=== PATIENT | male | born 1935 | race Caucasian/White ===

== ENCOUNTER 2016-11-10 13:35 | Observation (INO) | payer MEDICARE, MEDICAID ==
[2014-12-23 06:48] VITALS: BMI 24.2
[~2016-11-10 13:35] MED LIST: Sodium Chloride 0.9% 1,000 ML IV ONE
[2016-11-10] MEDS ORDERED: Sodium Chloride 0.9% 1,000 ML IV ONE (14:03)
[2016-11-10 22:45] LABS: ARTERIAL BLOOD GAS PH 7.36 (7.35-7.45)
[2016-11-10 22:48] LABS: ARTERIAL BLOOD GAS O2 CONTENT 15 ML/dL (15-23)
[2016-11-10 22:49] LABS: ARTERIAL BLOOD GAS O2 CAPACITY 23.2 mL/dL (16-24); CARBOXYHEMOGLOBIN 1.1 % (0.5-1.5); HHB 2.4 % (0-5); METHEMOGLOBIN 0.5 % (0.0-3.0)
[2016-11-10] MEDS: Pantoprazole 40 mg EC Tab PO SCH (23:05)
--- NOTE | 2016-11-10 23:13 | CT ---
PROCEDURE: CT HEAD WITHOUT CONTRAST. HISTORY: COMPARISON: None available. TECHNIQUE: Axial computed tomography images were obtained through the head/brain without intravenous contrast. Radiation dose: Total exam DLP = 677.45 mGy-cm. This CT exam was performed using one or more of the following dose reduction techniques: Automated exposure control, adjustment of the mA and/or kV according to patient size, and/or use of iterative reconstruction technique. FINDINGS: HEMORRHAGE: No acute parenchymal, subarachnoid or extra-axial hemorrhage. . BRAIN: Mild chronic periventricular white matter ischemic changes. Moderate generalized volume loss. Vascular calcifications of the carotid siphons and vertebral arteries. VENTRICLES: Enlargement of the ventricles and sulci due to volume loss however no evidence of obstructive type hydrocephalus. CALVARIUM: Calvarium is intact. PARANASAL SINUSES: Frontal sinuses are underpneumatized/hypoplastic. Remaining visualized paranasal sinuses well-developed and currently well-aerated. MASTOID AIR CELLS: Unremarkable as visualized. No inflammatory changes. OTHER FINDINGS: Apparent bilateral cataract surgery. IMPRESSION: No acute intracranial hemorrhage. Mild chronic white matter ischemic changes. Moderate volume loss.
--- NOTE | 2016-11-10 23:20 | CT ---
PROCEDURE: CT abdomen pelvis 11/10/2016 HISTORY: COMPARISON: None. TECHNIQUE: Contiguous axial images of the abdomen and pelvis. Oral contrast was administered. No IV contrast given. Coronal and Sagittal reformats generated. Radiation dose: Total exam DLP = 582.21 mGy-cm. This CT exam was performed using one or more of the following dose reduction techniques: Automated exposure control, adjustment of the mA and/or kV according to patient size, and/or use of iterative reconstruction technique. FINDINGS: LOWER THORAX: Current study demonstrate mild atelectasis both lung bases. No effusion or basilar pneumothorax. . . Heart size is upper limits of normal/borderline enlarged. Coronary artery calcifications. Also appears a coronary artery stent however correlation with cardiac history suggested. Small hiatal hernia. LIVER: Liver exhibits normal size measuring approximately 17.4 cm in CC dimension. . No obvious hepatic mass or collection. GALLBLADDER AND BILE DUCTS: Gallbladder is incompletely distended however no evidence of intraluminal gallbladder calculi. PANCREAS: Visualized portions of the pancreas unremarkable. SPLEEN: Spleen exhibits normal size and attenuation pattern without mass collection or calcification. ADRENALS: There are no adrenal lesions. KIDNEYS AND URETERS: Kidneys exhibit symmetric size. No evidence of nephrolithiasis or hydronephrosis. Small approximately 12 mm rounded cyst upper pole right kidney. Questionable artifact versus tiny cyst upper pole left kidney. BLADDER: The urinary bladder is physiologically distended. No evidence of intraluminal urinary bladder calculi. There is slight extension of the right anterolateral border of the urinary bladder into the proximal margins/mouth of right inguinal hernia which also contains fat. REPRODUCTIVE: Prostate gland measures approximately 4 cm in transverse dimension. Prostatic calcifications are present. APPENDIX: Normal appendix best seen on coronal image number [id number]. No periappendiceal inflammatory changes. BOWEL: Evaluation of the bowel is limited due to the lack of oral contrast material. Stomach is incompletely distended which presumably accounts thick-walled appearance. Gastritis not excluded. Visualized loops of small bowel exhibit normal contour and caliber. No evidence acute mechanical small bowel obstruction. Stool and air seen throughout the colon. No evidence of definitive mural wall thickening. There are scattered colonic diverticula the bulk of which arise from the sigmoid and descending colon. No definitive radiographic evidence of acute diverticulitis. PERITONEUM: Unremarkable. No fluid collection. No free air. LYMPH NODES: Unremarkable. No enlarged lymph nodes. VASCULATURE: Partially calcified atherosclerotic plaque changes seen along the abdominal aorta and iliac arteries. BONES: Mild multilevel degenerative spondylosis of the visualized lower thoracic and lumbar spine. There are no acute compression fractures nor retropulsed fragments. . OTHER FINDINGS: None. IMPRESSION: Diverticulosis without definitive radiographic evidence of acute diverticulitis. There is a small of fat containing right inguinal hernia ; the right anterior inferior margin of the urinary bladder also extends slightly inferolaterally into the mouth proximal border/ mouth of the aforementioned inguinal hernia. . Small renal cyst upper pole right kidney. . Questionable artifact versus small cyst upper pole left kidney.
[2016-11-10] MEDS: Insulin Lispro (humaLOG) MEDIUM Coverage SC SCH (23:25)
[2016-11-11 00:49] LABS: ADD MANUAL DIFF? NO
[2016-11-11 05:54] VITALS: O2SAT 98
[2016-11-11 07:51] LABS: VENOUS BLOOD GAS BASE EXCESS -3.1 mmol/L (0.0-2.0); VENOUS BLOOD PH 7.36 (7.32-7.43)
[2016-11-11 08:08] LABS: ALB/GLOB RATIO 1.1 (1.1-1.8); ALKALINE PHOSPHATASE 30 U/L (38-133); ALT/SGPT 26 U/L (7-56); AST/SGOT 24 U/L (15-59); BILIRUBIN,TOTAL 0.8 mg/dL (0.2-1.3); BLOOD UREA NITROGEN 53 mg/dL (7-21); CALCIUM 9.1 mg/dL (8.4-10.5); CARBON DIOXIDE 24 mmol/L (21-33); CHLORIDE 103 mmol/L (98-107); GFR AFRICAN-AMERICAN 30; GLUCOSE,RANDOM 220 mg/dL (70-110); MAGNESIUM 2.3 mg/dL (1.7-2.2); PHOSPHOROUS 4.8 mg/dL (2.5-4.5); POTASSIUM 4.5 mmol/L (3.6-5.0); SODIUM 139 mmol/L (132-148); TOTAL PROTEIN 7.3 g/dL (5.8-8.3); TROPONIN I < 0.01 ng/mL
[2016-11-11] MEDS: Insulin Lispro (humaLOG) MEDIUM Coverage SC SCH ×2 (08:23→11:53)
[2016-11-11] MEDS: Pantoprazole 40 mg EC Tab PO SCH (08:23)
[2016-11-11 08:43] LABS: INR 1.16 (0.93-1.08); PARTIAL THROMBOPLASTIN TIME 28.1 Seconds (23.7-30.8)
[2016-11-11 10:14] LABS: URINE APPEARANCE CLEAR (CLEAR); URINE BILIRUBIN NEGATIVE (NEGATIVE); URINE BLOOD NEGATIVE (NEGATIVE); URINE COLOR STRAW (YELLOW); URINE GLUCOSE (UA) >=1000 mg/dL (NEGATIVE); URINE KETONE NEGATIVE (NEGATIVE); URINE LEUKOCYTE ESTERASE NEGATIVE Leu/uL (NEGATIVE); URINE PROTEIN NEGATIVE mg/dL (<30 mg/dL); URINE UROBILINOGEN 0.2 E.U./dL (<1 E.U./dL)
--- NOTE | 2016-11-11 10:51 | CARD ---
APPROVED REPORT EKG Measurement Heart [id number] <Conclusion> Sinus rhythm with 1st degree AV block with occasional premature ventricular complexes Otherwise normal ECG
[2016-11-11 11:47] VITALS: BP 123/67; PULSE 65; RESP 18; TEMP 97.7
[2016-11-11 12:50] LABS: BASO # 0.02 K/mm3 (0.0-2.0); BASO % 0.2 % (0.0-3.0); EOS # 0.1 (0.0-0.7); EOS % 0.9 % (1.5-5.0); GRAN # 8.35 (1.4-6.5); GRAN % 70.7 % (50.0-68.0); HEMATOCRIT 46.6 % (42.0-52.0); LYMPH # 2.3 (1.2-3.4); LYMPH % 19.6 % (22.0-35.0); MEAN CELL VOLUME 88.4 fL (80.0-105.0); MEAN CORPUSCULAR HEMOGLOBIN 29.6 pg (25.0-35.0); MEAN CORPUSCULAR HGB CONC 33.5 g/dl (31.0-37.0); MEAN PLATELET VOLUME 10.8 fl (7.0-11.0); MONO % 8.6 % (1.0-6.0); PLATELET COUNT 220 10^3/uL (120.0-450.0); RED CELL DISTRIBUTION WIDTH 13.5 % (11.5-14.5); WHITE BLOOD COUNT 11.8 10^3/ul (4.5-11.0)
[2016-11-11 12:52] LABS: ADD MANUAL DIFF? NO
[2016-11-11 12:54] LABS: BASO # 0.02 K/mm3 (0.0-2.0); BASO % 0.2 % (0.0-3.0); EOS # 0.1 (0.0-0.7); EOS % 1.3 % (1.5-5.0); GRAN # 6.06 (1.4-6.5); GRAN % 59.4 % (50.0-68.0); LYMPH # 3.4 (1.2-3.4); LYMPH % 33.4 % (22.0-35.0); MEAN CORPUSCULAR HEMOGLOBIN 29.6 pg (25.0-35.0); MEAN CORPUSCULAR HGB CONC 33.6 g/dl (31.0-37.0); MEAN PLATELET VOLUME 10.3 fl (7.0-11.0); MONO # 0.6 (0.1-0.6); MONO % 5.7 % (1.0-6.0); PLATELET COUNT 170 10^3/uL (120.0-450.0); RED CELL DISTRIBUTION WIDTH 13.8 % (11.5-14.5); WHITE BLOOD COUNT 10.2 10^3/ul (4.5-11.0)
--- NOTE | 2016-11-11 13:02 | RAD ---
HISTORY: SYNCOPE COMPARISON: 07/25/2013 FINDINGS: LUNGS: No active pulmonary disease. PLEURA: No significant pleural effusion identified, no pneumothorax apparent. CARDIOVASCULAR: Normal. OSSEOUS STRUCTURES: No significant abnormalities. VISUALIZED UPPER ABDOMEN: Normal. OTHER FINDINGS: None. IMPRESSION: No active disease.
[2016-11-11 13:05] LABS: ALB/GLOB RATIO 1.2 (1.1-1.8); BILIRUBIN,TOTAL 0.7 mg/dL (0.2-1.3); CALCIUM 9.1 mg/dL (8.4-10.5); POTASSIUM 4.7 mmol/L (3.6-5.0); TOTAL PROTEIN 7.6 g/dL (5.8-8.3)
--- NOTE | 2016-11-11 13:55 | CP.PCM.DIS ---
<Stephen Walter - Last Filed: 11/22/16 14:02> Provider - Provider Date of Admission: 11/10/16 18:30 Attending physician: Yuriy Black MD Primary care physician: Miguel Cramer MD Consults: Cardiology: Kiet Time Spent in preparation of Discharge (in minutes): 45 Hospital Course - Lab Results Lab Results: Most Recent Lab Values WBC 10.2 10^3/ul (4.5-11.0) 11/11/16 12:50 RBC 5.00 10^6/uL (3.5-6.1) 11/11/16 12:50 Hgb 14.8 gm/dL (14.0-18.0) 11/11/16 12:50 Hct 44.0 % (42.0-52.0) 11/11/16 12:50 MCV 88.0 fL (80.0-105.0) 11/11/16 12:50 MCH 29.6 pg (25.0-35.0) 11/11/16 12:50 MCHC 33.6 g/dl (31.0-37.0) 11/11/16 12:50 RDW 13.8 % (11.5-14.5) 11/11/16 12:50 Plt Count 170 10^3/uL (120.0-450.0) 11/11/16 12:50 MPV 10.3 fl (7.0-11.0) 11/11/16 12:50 Gran % 59.4 % (50.0-68.0) 11/11/16 12:50 Lymph % (Auto) 33.4 % (22.0-35.0) 11/11/16 12:50 [place] % (Auto) 5.7 % (1.0-6.0) 11/11/16 12:50 Eos % (Auto) 1.3 % (1.5-5.0) L 11/11/16 12:50 Baso % (Auto) 0.2 % (0.0-3.0) 11/11/16 12:50 Gran # 6.06 (1.4-6.5) 11/11/16 12:50 Lymph # 3.4 (1.2-3.4) 11/11/16 12:50 [place] # 0.6 (0.1-0.6) 11/11/16 12:50 Eos # 0.1 (0.0-0.7) 11/11/16 12:50 Baso # 0.02 K/mm3 (0.0-2.0) 11/11/16 12:50 PT 12.5 Seconds (9.9-11.8) H 11/10/16 14:40 INR 1.16 (0.93-1.08) H 11/10/16 14:40 APTT 28.1 Seconds (23.7-30.8) 11/10/16 14:40 pCO2 39 mm/Hg (35-45) 11/10/16 19:52 pO2 89.0 mm/Hg (80-100) 11/10/16 19:52 HCO3 22.0 mmol/L (21-28) 11/10/16 19:52 ABG pH 7.36 (7.35-7.45) 11/10/16 19:52 ABG Total CO2 22.0 mmol.L (22-28) 11/10/16 19:52 ABG O2 Saturation 97.6 % (95-98) 11/10/16 19:52 ABG O2 Content 15 ML/dL (15-23) 11/10/16 19:52 ABG Base Excess -3.1 mmol/L (-2.0-3.0) L 11/10/16 19:52 ABG Hemoglobin 13.4 g/dL (11.7-17.4) 11/10/16 19:52 ABG Carboxyhemoglobin 1.1 % (0.5-1.5) 11/10/16 19:52 POC ABG HHb (Measured) 2.4 % (0-5) 11/10/16 19:52 ABG Methemoglobin 0.5 % (0.0-3.0) 11/10/16 19:52 ABG O2 Capacity 23.2 mL/dL (16-24) 11/10/16 19:52 VBG pH 7.36 (7.32-7.43) 11/10/16 14:15 VBG pCO2 39.0 (40-60) L 11/10/16 14:15 VBG HCO3 22.0 mmol/l (21-28) 11/10/16 14:15 VBG Total CO2 23.2 mmol.L (22-28) 11/10/16 14:15 VBG O2 Sat (Calc) 97.6 % (40-65) H 11/10/16 14:15 VBG Base Excess -3.1 mmol/L (0.0-2.0) L 11/10/16 14:15 VBG Potassium 4.3 mmol/L (3.6-5.2) 11/10/16 14:15 Hgb O2 Saturation 96.0 % (95.0-98.0) 11/10/16 19:52 Sodium 137.0 mmol/L (132-148) 11/10/16 14:15 Chloride 114.0 mmol/L (98-107) H 11/10/16 14:15 Glucose 159 mg/dl (75-110) H 11/10/16 14:15 Lactate 1.1 mmol/L (0.7-2.1) 11/10/16 14:15 FiO2 21.0 % 11/10/16 14:15 Sodium 140 mmol/L (132-148) 11/11/16 12:50 Potassium 4.7 mmol/L (3.6-5.0) 11/11/16 12:50 Chloride 105 mmol/L (98-107) 11/11/16 12:50 Carbon Dioxide 22 mmol/L (21-33) 11/11/16 12:50 Anion Gap 18 (10-20) 11/11/16 12:50 BUN 39 mg/dL (7-21) H 11/11/16 12:50 Creatinine 2.0 mg/dL (0.5-1.4) H 11/11/16 12:50 Est GFR ( Amer) 39 11/11/16 12:50 Est GFR (Non-Af Amer) 32 11/11/16 12:50 POC Glucose (mg/dL) 126 mg/dL (65-110) H 11/10/16 23:09 Random Glucose 136 mg/dL (70-110) H 11/11/16 12:50 Calcium 9.1 mg/dL (8.4-10.5) 11/11/16 12:50 Phosphorus 4.8 mg/dL (2.5-4.5) H 11/10/16 14:40 Magnesium 2.3 mg/dL (1.7-2.2) H 11/10/16 14:40 Total Bilirubin 0.7 mg/dL (0.2-1.3) 11/11/16 12:50 AST 22 U/L (15-59) 11/11/16 12:50 ALT 28 U/L (7-56) 11/11/16 12:50 Alkaline Phosphatase 35 U/L (38-133) L 11/11/16 12:50 Lactate Dehydrogenase 397 U/L (333-699) 11/10/16 14:40 Total Creatine Kinase 68 U/L (35-230) 11/10/16 14:40 Troponin I < 0.01 ng/mL 11/10/16 14:40 NT-Pro-B Natriuret Pep 410 pg/mL (0-450) 11/10/16 14:40 Total Protein 7.6 g/dL (5.8-8.3) 11/11/16 12:50 Albumin 4.1 g/dL (3.0-4.8) 11/11/16 12:50 Globulin 3.5 gm/dL 11/11/16 12:50 Albumin/Globulin Ratio 1.2 (1.1-1.8) 11/11/16 12:50 Venous Blood Potassium 4.3 mmol/L (3.6-5.2) 11/10/16 14:15 Urine Color Straw (YELLOW) 11/10/16 17:40 Urine Appearance Clear (CLEAR) 11/10/16 17:40 Urine pH 6.0 (4.7-8.0) 11/10/16 17:40 Ur Specific Varney 1.010 (1.005-1.035) 11/10/16 17:40 Urine Protein Negative mg/dL (<30 mg/dL) 11/10/16 17:40 Urine Glucose (UA) >=1000 mg/dL (NEGATIVE) 11/10/16 17:40 Urine Ketones Negative mg/dL (NEGATIVE) 11/10/16 17:40 Urine Blood Negative (NEGATIVE) 11/10/16 17:40 Urine Nitrate Negative (NEGATIVE) 11/10/16 17:40 Urine Bilirubin Negative (NEGATIVE) 11/10/16 17:40 Urine Urobilinogen 0.2 E.U./dL (<1 E.U./dL) 11/10/16 17:40 Ur Leukocyte Esterase Negative Martin/uL (NEGATIVE) 11/10/16 17:40 Blood Type AB POSITIVE 11/10/16 07:00 Blood Type Confirm AB POSITIVE 11/10/16 18:00 Antibody Screen Negative 11/10/16 07:00 BBK History Checked No verified bt 11/10/16 07:00 - Hospital Course Hospital Course: Upon Admission: 81yo M with PMHx of CAD s/p cardiac stents x2, HTN, DM, CKD here for evaluation of syncope. Patient states that he was walking to the bathroom when he felt dizzy, lightheaded and had a syncopal episode. He states that his family found him on the floor, does not think he was down for an extended period of time. He does state that he was diaphoretic and fatigued. Patient was found to have positive orthostatics in the ER and was given aggressive IVF. He states that he felt better. Also c/o abdominal pain in the ED, CT abd/pelvis with no acute findings. He was kept overnight for observation and Cardiology consult was obtained. Patient's symptoms improved, no EKG changes were seen, troponins were negative. Patient's home dose of Metoprolol XL was decreased to 50mg Daily. Patient was discharged home with close follow up with his primary care physician and health and safety consultant as out-patient. Patient and family education was provided, they understand and agree with plan. 1. Orthostatic Hypotension/Syncope; Improved 2. Acute on Chronic Kidney Failure; improved; Patient states that it is baseline 3. Hx of HTN 4. Hx of DM Upon Discharge: Patient is cleared for discharge as per Dr. Mcdonough 1. Follow up with your primary care physician in 3-4 days 2. Follow up with your Survey Worker within 1 week 3. Resume home meds with the exception of Metoprolol (Toprol) XL. Decrease dose to Metoprolol XL 50mg PO Daily. (Sent to [facility]) 4. Check BP at home 3 times a day and keep record for primary care physician 5. Return to the ER with any concerning symptoms Adjusted medication: Metoprolol XL 50mg PO Daily. Discharge Exam - Head Exam Head Exam: ATRAUMATIC, NORMAL INSPECTION, NORMOCEPHALIC - Eye Exam Eye Exam: EOMI, Normal appearance, PERRL. absent: Scleral icterus Pupil Exam: PERRL - ENT Exam ENT Exam: Mucous Membranes Moist - Neck Exam Neck exam: Full Rom - Respiratory Exam Respiratory Exam: Clear to PA & Lateral, UNREMARKABLE. absent: Wheezes - Cardiovascular Exam Cardiovascular Exam: RRR, +S1, +S2. absent: JVD - GI/Abdominal Exam GI & Abdominal Exam: Soft, Unremarkable. absent: Distended, Guarding, Rebound, Rigid - Extremities Exam Extremities exam: normal inspection - Back Exam Back exam: NORMAL INSPECTION - Neurological Exam Neurological exam: Alert, Oriented x3 - Psychiatric Exam Psychiatric exam: Normal Affect, Normal Mood - Skin Skin Exam: Dry, Intact, Normal Color, Warm Discharge Plan - Discharge Medications Prescriptions: Metoprolol Succinate [Toprol XL] 50 mg PO DAILY #30 tab - Follow Up Plan Condition: GOOD Disposition: HOME/ ROUTINE Instructions: Syncope (DC) Additional Instructions: Patient is cleared for discharge as per Dr. Mcdonough 1. Follow up with your primary care physician in 3-4 days 2. Follow up with your Survey Worker within 1 week 3. Resume home meds with the exception of Metoprolol (Toprol) XL. Decrease dose to Metoprolol XL 50mg PO Daily. (Sent to [facility]) 4. Check BP at home 3 times a day and keep record for primary care physician 5. Return to the ER with any concerning symptoms Adjusted medication: Metoprolol XL 50mg PO Daily. Referrals: Miguel Cramer MD [Primary Care Provider] - <Ceasar JAEGER,[facility] - Last Filed: 11/23/16 17:17> Provider - Provider Date of Admission: 11/10/16 18:30 Attending physician: Yuriy Black MD Primary care physician: Miguel Cramer MD Hospital Course - Lab Results Lab Results: Most Recent Lab Values WBC 10.2 10^3/ul (4.5-11.0) 11/11/16 12:50 RBC 5.00 10^6/uL (3.5-6.1) 11/11/16 12:50 Hgb 14.8 gm/dL (14.0-18.0) 11/11/16 12:50 Hct 44.0 % (42.0-52.0) 11/11/16 12:50 MCV 88.0 fL (80.0-105.0) 11/11/16 12:50 MCH 29.6 pg (25.0-35.0) 11/11/16 12:50 MCHC 33.6 g/dl (31.0-37.0) 11/11/16 12:50 RDW 13.8 % (11.5-14.5) 11/11/16 12:50 Plt Count 170 10^3/uL (120.0-450.0) 11/11/16 12:50 MPV 10.3 fl (7.0-11.0) 11/11/16 12:50 Gran % 59.4 % (50.0-68.0) 11/11/16 12:50 Lymph % (Auto) 33.4 % (22.0-35.0) 11/11/16 12:50 [place] % (Auto) 5.7 % (1.0-6.0) 11/11/16 12:50 Eos % (Auto) 1.3 % (1.5-5.0) L 11/11/16 12:50 Baso % (Auto) 0.2 % (0.0-3.0) 11/11/16 12:50 Gran # 6.06 (1.4-6.5) 11/11/16 12:50 Lymph # 3.4 (1.2-3.4) 11/11/16 12:50 [place] # 0.6 (0.1-0.6) 11/11/16 12:50 Eos # 0.1 (0.0-0.7) 11/11/16 12:50 Baso # 0.02 K/mm3 (0.0-2.0) 11/11/16 12:50 PT 12.5 Seconds (9.9-11.8) H 11/10/16 14:40 INR 1.16 (0.93-1.08) H 11/10/16 14:40 APTT 28.1 Seconds (23.7-30.8) 11/10/16 14:40 pCO2 39 mm/Hg (35-45) 11/10/16 19:52 pO2 89.0 mm/Hg (80-100) 11/10/16 19:52 HCO3 22.0 mmol/L (21-28) 11/10/16 19:52 ABG pH 7.36 (7.35-7.45) 11/10/16 19:52 ABG Total CO2 22.0 mmol.L (22-28) 11/10/16 19:52 ABG O2 Saturation 97.6 % (95-98) 11/10/16 19:52 ABG O2 Content 15 ML/dL (15-23) 11/10/16 19:52 ABG Base Excess -3.1 mmol/L (-2.0-3.0) L 11/10/16 19:52 ABG Hemoglobin 13.4 g/dL (11.7-17.4) 11/10/16 19:52 ABG Carboxyhemoglobin 1.1 % (0.5-1.5) 11/10/16 19:52 POC ABG HHb (Measured) 2.4 % (0-5) 11/10/16 19:52 ABG Methemoglobin 0.5 % (0.0-3.0) 11/10/16 19:52 ABG O2 Capacity 23.2 mL/dL (16-24) 11/10/16 19:52 VBG pH 7.36 (7.32-7.43) 11/10/16 14:15 VBG pCO2 39.0 (40-60) L 11/10/16 14:15 VBG HCO3 22.0 mmol/l (21-28) 11/10/16 14:15 VBG Total CO2 23.2 mmol.L (22-28) 11/10/16 14:15 VBG O2 Sat (Calc) 97.6 % (40-65) H 11/10/16 14:15 VBG Base Excess -3.1 mmol/L (0.0-2.0) L 11/10/16 14:15 VBG Potassium 4.3 mmol/L (3.6-5.2) 11/10/16 14:15 Hgb O2 Saturation 96.0 % (95.0-98.0) 11/10/16 19:52 Sodium 137.0 mmol/L (132-148) 11/10/16 14:15 Chloride 114.0 mmol/L (98-107) H 11/10/16 14:15 Glucose 159 mg/dl (75-110) H 11/10/16 14:15 Lactate 1.1 mmol/L (0.7-2.1) 11/10/16 14:15 FiO2 21.0 % 11/10/16 14:15 Sodium 140 mmol/L (132-148) 11/11/16 12:50 Potassium 4.7 mmol/L (3.6-5.0) 11/11/16 12:50 Chloride 105 mmol/L (98-107) 11/11/16 12:50 Carbon Dioxide 22 mmol/L (21-33) 11/11/16 12:50 Anion Gap 18 (10-20) 11/11/16 12:50 BUN 39 mg/dL (7-21) H 11/11/16 12:50 Creatinine 2.0 mg/dL (0.5-1.4) H 11/11/16 12:50 Est GFR ( Amer) 39 11/11/16 12:50 Est GFR (Non-Af Amer) 32 11/11/16 12:50 POC Glucose (mg/dL) 78 mg/dL (65-110) 11/11/16 15:55 Random Glucose 136 mg/dL (70-110) H 11/11/16 12:50 Calcium 9.1 mg/dL (8.4-10.5) 11/11/16 12:50 Phosphorus 4.8 mg/dL (2.5-4.5) H 11/10/16 14:40 Magnesium 2.3 mg/dL (1.7-2.2) H 11/10/16 14:40 Total Bilirubin 0.7 mg/dL (0.2-1.3) 11/11/16 12:50 AST 22 U/L (15-59) 11/11/16 12:50 ALT 28 U/L (7-56) 11/11/16 12:50 Alkaline Phosphatase 35 U/L (38-133) L 11/11/16 12:50 Lactate Dehydrogenase 397 U/L (333-699) 11/10/16 14:40 Total Creatine Kinase 68 U/L (35-230) 11/10/16 14:40 Troponin I < 0.01 ng/mL 11/10/16 14:40 NT-Pro-B Natriuret Pep 410 pg/mL (0-450) 11/10/16 14:40 Total Protein 7.6 g/dL (5.8-8.3) 11/11/16 12:50 Albumin 4.1 g/dL (3.0-4.8) 11/11/16 12:50 Globulin 3.5 gm/dL 11/11/16 12:50 Albumin/Globulin Ratio 1.2 (1.1-1.8) 11/11/16 12:50 Venous Blood Potassium 4.3 mmol/L (3.6-5.2) 11/10/16 14:15 Urine Color Straw (YELLOW) 11/10/16 17:40 Urine Appearance Clear (CLEAR) 11/10/16 17:40 Urine pH 6.0 (4.7-8.0) 11/10/16 17:40 Ur Specific Varney 1.010 (1.005-1.035) 11/10/16 17:40 Urine Protein Negative mg/dL (<30 mg/dL) 11/10/16 17:40 Urine Glucose (UA) >=1000 mg/dL (NEGATIVE) 11/10/16 17:40 Urine Ketones Negative mg/dL (NEGATIVE) 11/10/16 17:40 Urine Blood Negative (NEGATIVE) 11/10/16 17:40 Urine Nitrate Negative (NEGATIVE) 11/10/16 17:40 Urine Bilirubin Negative (NEGATIVE) 11/10/16 17:40 Urine Urobilinogen 0.2 E.U./dL (<1 E.U./dL) 11/10/16 17:40 Ur Leukocyte Esterase Negative Martin/uL (NEGATIVE) 11/10/16 17:40 Blood Type AB POSITIVE 11/10/16 07:00 Blood Type Confirm AB POSITIVE 11/10/16 18:00 Antibody Screen Negative 11/10/16 07:00 BBK History Checked No verified bt 11/10/16 07:00 Attending/Attestation - Attestation I have personally seen and examined this patient.: Yes I have fully participated in the care of the patient.: Yes I have reviewed all pertinent clinical information, including history, physical exam and plan: Yes Notes (Text): 11/23/16 17:16 Patient was seen and examined with medical claims processor .Agreed with resident assessment and plan. Management plan was discussed in detail with patient Education was provided.
== END 2016-11-11 16:48 | disposition home or self-care (01) ==
LOC: ED 13:35 → ERH 18:30 → INTOOBSV 18:30 → ERH 18:45 → 2RSO 21:29
PROVIDERS: ADMIT Internal Medicine; ATTEND Internal Medicine
DX: I95.1 Orthostatic hypotension (principal); I25.10 Atherosclerotic heart disease of native coronary artery without angina pectoris; I12.9 Hypertensive chronic kidney disease with stage 1 through stage 4 chronic kidney disease, or unspecified chronic kidney disease; E11.22 Type 2 diabetes mellitus with diabetic chronic kidney disease; N18.9 Chronic kidney disease, unspecified; N17.9 Acute kidney failure, unspecified; E86.0 Dehydration; Z88.8 Allergy status to other drugs, medicaments and biological substances
CPT/HCPCS: 36415; 36600; 70450; 71010; 74176; 80053; 81003; 82550; 82803; 82948; 83615; 83735; 83880; 84100; 84484; 85025; 85610; 85730; 86850; 86900; 87040; 87086; 93005; 99281; G0378; J7040